=== PATIENT | female | born 1950 | race Caucasian/White ===

== ENCOUNTER 2018-01-05 18:10 | Emergency (ER) | payer OTHER ==
[~2018-01-05] VITALS: Ht 172.7 cm; Wt 115.7 kg
[~2018-01-05 18:10] MED LIST: DILAUDID; HCTZ; METHPOW77; METOPROLOL; PREDPOW63; VENLAFAXINE
[2018-01-05 18:24] VITALS: BP 139/67
[2018-01-05] MEDS ORDERED: ONDANSETRON ODT 4 MG TAB PO ONE (19:45)
[2018-01-05] MEDS ORDERED: MEPERIDINE HCL (50 MG/ML) 1 ML VIAL IM ONE (19:45)
[2018-01-05 21:11] LABS: INR 2.67 (0.9-1.15)
== END 2018-01-05 22:03 | disposition home or self-care (01) ==
LOC: ER 18:10
DX: M23.91 Unspecified internal derangement of right knee (principal); M25.461 Effusion, right knee; I48.91 Unspecified atrial fibrillation; F17.210 Nicotine dependence, cigarettes, uncomplicated; Z88.5 Allergy status to narcotic agent; Z79.899 Other long term (current) drug therapy; Z86.711 Personal history of pulmonary embolism
CPT/HCPCS: 36415; 73560; 73700; 85610; 93971; 96372; 99285; J2175; Q0162